=== PATIENT | male | born 1950 | race Caucasian/White ===

== ENCOUNTER 2020-11-06 05:41 | Day surgery (SDC) | payer MEDICARE ==
[2020-10-30 12:34] LABS: BASOPHILS % (AUTO) 0.3 % (0-1); EOSINOPHILS # (AUTO) 0.2 X10'3 (0-0.9); EOSINOPHILS % (AUTO) 3.9 % (0-6); LYMPHOCYTES # (AUTO) 2.5 X10'3 (1.1-4.8); LYMPHOCYTES % (AUTO) 41.1 % (21-51); MEAN CORPUSCULAR HEMOGLOBIN 32.6 PG (27.0-31.0); MEAN CORPUSCULAR HGB CONC 34.5 g/dL (33.0-36.5); MEAN CORPUSCULAR VOLUME 94.5 FL (78-98); MEAN PLATELET VOLUME 7.6 FL (7.4-10.4); MONOCYTES # (AUTO) 0.5 X10'3 (0-0.9); MONOCYTES % (AUTO) 8.7 % (2-12); NEUTROPHILS # (AUTO) 2.8 X10'3 (1.8-7.7); PRE OP HEMATOCRIT 44.6 % (35.0-45.0); PRE OP HEMOGLOBIN 15.4 g/dL (12.0-16.0); PRE OP PLATELET COUNT 195 X10'3 (140-440); RED BLOOD COUNT 4.72 X10'6 (4.20-5.60); RED CELL DISTRIBUTION WIDTH 13.2 % (11.5-14.5)
[2020-10-30 12:43] LABS: ALBUMIN 3.7 G/DL (3.4-5.0); ALBUMIN/GLOBULIN RATIO 1.1 (1.1-1.5); ALKALINE PHOSPHATASE 49 IU/L (46-116); BLOOD UREA NITROGEN 19 MG/DL (7-18); BUN/CREATININE RATIO 22.4 (6.6-38.0); CALCIUM 8.8 MG/DL (8.5-10.1); CHLORIDE 106 MMOL/L (99-107); CREATININE 0.85 MG/DL (0.40-0.90); PRE OP ALT 42 U/L (30-65); PRE OP ANION GAP 7 (8-16); PRE OP AST 32 U/L (10-37); PRE OP BILIRUB, TOTAL 0.6 MG/DL (0.0-1.0); PRE OP GLUCOSE 87 MG/DL (70-104); PRE OP POTASSIUM 4.2 MMOL/L (3.4-5.1); PRE OP SODIUM 142 MMOL/L (135-145); eGFR 66 ML/MIN
[2020-11-06] VITALS (8 sets, daily range): BP systolic 130–159; BP diastolic 77–106
[~2020-11-06] VITALS: Ht 182.9 cm; Wt 89.1 kg
[~2020-11-06 05:41] MED LIST: OXYC1TAB17 PO; ceFAZolin 2gm in dextrose, iso 50 ML IV ONE; famotidine 20mg tablet PO ONE; ringers solution, lacted 1,000 ML IV SCH
[2020-11-06] MEDS ORDERED: BUPIVAcaine/PF 2.5 mg/ml (0.25%) 30ml vial ONE (07:03)
[2020-11-06] MEDS ORDERED: fentaNYL/PF 50MCG/1 ML 2ML syringe ONE ×2 (08:50→09:06)
[2020-11-06] MEDS ORDERED: midazolam 2 mg/2 ml injection ONE (08:50)
[2020-11-06] MEDS ORDERED: neostigmine methylsulfate 1 MG/ML 10ml vial ONE (09:03)
[2020-11-06] MEDS ORDERED: sevoflurane 250ml liquid IH ONE (09:03)
[2020-11-06] MEDS ORDERED: glycopyrrolate 0.2mg/ml inj ONE (09:03)
[2020-11-06] MEDS ORDERED: rocuronium 10mg/ml inj IV ONE (09:11)
[2020-11-06] MEDS ORDERED: LIDOcaine 2% (20mg/ml) 5ml vial ONE (09:11)
[2020-11-06] MEDS ORDERED: ondansetron/PF 4mg/2ml inj ONE (09:11)
[2020-11-06] MEDS ORDERED: dexamethasone sod phosphate 4mg/ml inj. ONE (09:11)
[2020-11-06] MEDS ORDERED: propofol inj 20 ML IV ONE (09:11)
[2020-11-06] MEDS ORDERED: LIDOcaine 2% 5ml jelly ONE (09:14)
[2020-11-06] MEDS ORDERED: ePHEDrine 50MG/ML INJ. ONE (09:14)
[2020-11-06] MEDS ORDERED: 0.9 % SODIUM CHLORIDE 10 ML VIAL ONE (09:14)
[2020-11-06] MEDS ORDERED: metoprolol tartrate 1mg/ml inj IV ONE ×2 (09:30→10:18)
[2020-11-06] MEDS ORDERED: ringers solution, lacted 1,000 ML IV SCH (09:45)
[2020-11-06] MEDS ORDERED: labetalol 20mg/4ml (5mg/ml) syringe IV PRN (09:45)
[2020-11-06] MEDS ORDERED: acetaminophen 1,000mg/100ml IV 100 ML IV PRN (09:45)
[2020-11-06] MEDS ORDERED: hydrALAZINE 20mg/ml inj. IV PRN (09:45)
[2020-11-06] MEDS ORDERED: morphine 2 MG/ML inj. syringe IV PRN (09:45)
[2020-11-06] MEDS ORDERED: ondansetron/PF 4mg/2ml inj IV PRN (09:45)
[2020-11-06] MEDS ORDERED: proCHLORperazine 10 MG/2 ml inj IV PRN (09:45)
[2020-11-06] MEDS ORDERED: meperidine/PF 25mg/ml syringe IV PRN ×3 (09:45)
[2020-11-06] MEDS ORDERED: morphine 4 MG/ML inj SYRINge IV PRN (09:45)
[2020-11-06] MEDS ORDERED: oxyCODONE/APAP 10/325mg tablet PO ONE (10:35)
--- NOTE | 2020-11-06 10:40 | NUR ---
Received from OR via BED , accompanied by Anesthesiologist DR MARTINEZ and report given by Anesthesiolgist. PATIENT WAKING UP, DENIES PAIN, V/S WNL, NEUROVASCULAR CHECKS INTACT, 20G PIV RUE, SCD ON, BANDAIDS TO LAP SIGHTS OF ABDOMEN CDI.
--- NOTE | 2020-11-06 11:40 | NUR ---
PATIENT A&OX4, DENIES PAIN, V/S WNL, NEUROVASCULAR CHECKS INTACT, 20G PIV RUE D/C, SCD OFF, BANDAIDS TO LAP SIGHTS OF ABDOMEN CDI. SCRIPT IN PATIENT PHARMACY AND HE HAS VOIDED. I HAVE REVIEWED D/C INSTRUCTIONS WITH PATIENT AND FAMILY AND THEY HAVE VERBALIZED UNDERSTANDING. PATIENT D/C HOME WITH ALL BELONGINGS AND FAMILY GAVE TRANSPORT HOME.
== END 2020-11-06 11:40 | disposition home or self-care (01) ==
LOC: PAS 05:41 → EDSEX 05:41 → PAS 11:40
PROVIDERS: ATTEND Surgery
DX: K40.90 Unilateral inguinal hernia, without obstruction or gangrene, not specified as recurrent (principal); Z20.822 Contact with and (suspected) exposure to COVID-19; D17.6 Benign lipomatous neoplasm of spermatic cord; N40.0 Benign prostatic hyperplasia without lower urinary tract symptoms; M19.90 Unspecified osteoarthritis, unspecified site; F43.10 Post-traumatic stress disorder, unspecified; J45.909 Unspecified asthma, uncomplicated; Z98.890 Other specified postprocedural states; Z79.899 Other long term (current) drug therapy; Z96.659 Presence of unspecified artificial knee joint; Z82.49 Family history of ischemic heart disease and other diseases of the circulatory system; Z80.9 Family history of malignant neoplasm, unspecified
CPT/HCPCS: 36415; 49650; 80053; 82948; 85025; 87635; 93005; C1758; C1781; J1100; J2001; J2250; J2405; J2704; J3010; J3490; A4215; A4618; J2710; J7120

== ENCOUNTER 2023-12-21 15:07 | Outpatient (CLI) | payer MEDICARE ==
[~2023-12-21 15:07] MED LIST changes: +ALIR150P6 SUBCUT; +ASPI-611 PO; +ATOR10TA PO; +HYDR-3973 PO; +LOP12.5T PO; +OMEP20CA16 PO; -OXYC1TAB17 PO; +TADA5TAB2 PO; +TEST200V33 IM; -ceFAZolin 2gm in dextrose, iso 50 ML IV ONE; -famotidine 20mg tablet PO ONE; -ringers solution, lacted 1,000 ML IV SCH
== END 2023-12-21 23:59 | disposition home or self-care (01) ==
LOC: VAS 15:07
PROVIDERS: ATTEND Nurse Practitioner Family
DX: M79.89 Other specified soft tissue disorders (principal); Z95.1 Presence of aortocoronary bypass graft
CPT/HCPCS: 93971

== ENCOUNTER → 2023-12-29 | Outpatient (CLI) | payer MEDICARE | END | disposition home or self-care (01) | LOC: RAD 11:40 | PROVIDERS: ATTEND Thoracic Surgery (Cardiothoracic Vascular Surgery) | DX: J98.11 Atelectasis (principal); J91.8 Pleural effusion in other conditions classified elsewhere; Z95.1 Presence of aortocoronary bypass graft | CPT/HCPCS: 71046 ==

== ENCOUNTER 2024-09-15 10:26 | Outpatient (CLI) | payer MEDICARE, OTHER ==
[~2024-09-15 10:26] MED LIST changes: -HYDR-3973 PO
== END 2024-09-15 23:59 | disposition home or self-care (01) ==
LOC: RAD 10:26
PROVIDERS: ATTEND Nurse Practitioner Family
DX: R39.9 Unspecified symptoms and signs involving the genitourinary system (principal); R31.29 Other microscopic hematuria; R10.32 Left lower quadrant pain; Z87.19 Personal history of other diseases of the digestive system
CPT/HCPCS: 76705; 76770

== ENCOUNTER 2025-01-23 14:12 | Outpatient (CLI) | payer MEDICARE, OTHER ==
[2025-01-23 14:51] LABS: BASOPHILS % (AUTO) 0.5 % (0-1); EOSINOPHILS # (AUTO) 0.1 X10'3 (0-0.9); EOSINOPHILS % (AUTO) 1.8 % (0-6); HEMATOCRIT 43.8 % (42.0-52.0); HEMOGLOBIN 14.7 g/dl (14.0-17.9); LYMPHOCYTES # (AUTO) 1.7 X10'3 (1.1-4.8); LYMPHOCYTES % (AUTO) 30.1 % (21-51); MEAN CORPUSCULAR HEMOGLOBIN 30.8 PG (27.0-31.0); MEAN CORPUSCULAR HGB CONC 33.5 g/dL (33.0-36.5); MEAN CORPUSCULAR VOLUME 91.9 FL (78-98); MEAN PLATELET VOLUME 7.3 FL (7.4-10.4); MONOCYTES # (AUTO) 0.5 X10'3 (0-0.9); MONOCYTES % (AUTO) 8.1 % (2-12); NEUTROPHILS # (AUTO) 3.4 X10'3 (1.8-7.7); NEUTROPHILS % (AUTO) 59.5 % (42-75); PLATELET COUNT 170 X10'3 (140-440); RED BLOOD COUNT 4.77 X10'6 (4.70-6.10); RED CELL DISTRIBUTION WIDTH 14.1 % (11.5-14.5); WHITE BLOOD COUNT 5.7 X10'3 (4.5-11.0)
[2025-01-23 15:22] LABS: ALANINE AMINOTRANSFERASE 29 U/L (12-78); ALBUMIN 3.1 G/DL (3.4-5.0); ALBUMIN/GLOBULIN RATIO 1.1 (1.1-1.5); ALKALINE PHOSPHATASE 48 IU/L (46-116); ANION GAP 4 (8-16); ASPARTATE AMINO TRANSFERASE 20 U/L (10-37); BILIRUBIN,TOTAL 0.5 MG/DL (0.1-1.0); BLOOD UREA NITROGEN 14 MG/DL (7-18); BUN/CREATININE RATIO 13.7 (10.0-20.0); CALCIUM 8.3 MG/DL (8.5-10.1); CHLORIDE 109 MMOL/L (99-107); CREATININE 1.02 MG/DL (0.60-1.10); GLUCOSE 101 MG/DL (70-104); POTASSIUM 4.3 MMOL/L (3.5-5.1); SODIUM 142 MMOL/L (135-145); TOTAL CARBON DIOXIDE 29.5 MMOL/L (24-32); URIC ACID 5.5 MG/DL (3.5-7.2); eGFR 72 ML/MIN
== END 2025-01-23 23:59 | disposition home or self-care (01) ==
LOC: LAB 14:12
PROVIDERS: ATTEND Nurse Practitioner Family
DX: Z01.812 Encounter for preprocedural laboratory examination (principal); Z01.818 Encounter for other preprocedural examination; M79.675 Pain in left toe(s)
CPT/HCPCS: 36415; 80053; 84550; 85025